=== PATIENT | male | born 1950 | race Caucasian/White ===

== ENCOUNTER 2021-08-17 19:23 | Inpatient (IN) | payer MEDICARE, MEDICAID ==
[~2021-08-17] VITALS: Ht 167.6 cm; Wt 73.1 kg
[2021-08-17 20:02] LABS: BASOPHILS % (AUTO) 0.1 % (0-1); EOSINOPHILS % (AUTO) 0.5 % (0-6); HEMATOCRIT 42.7 % (42.0-52.0); HEMOGLOBIN 14.2 g/dl (14.0-17.9); LYMPHOCYTES # (AUTO) 1.1 X10'3 (1.1-4.8); LYMPHOCYTES % (AUTO) 14.8 % (21-51); MEAN CORPUSCULAR HEMOGLOBIN 32.5 PG (27.0-31.0); MEAN CORPUSCULAR HGB CONC 33.2 g/dL (33.0-36.5); MEAN CORPUSCULAR VOLUME 97.9 FL (78-98); MEAN PLATELET VOLUME 8.6 FL (7.4-10.4); MONOCYTES # (AUTO) 0.8 X10'3 (0-0.9); MONOCYTES % (AUTO) 10.2 % (2-12); NEUTROPHILS # (AUTO) 5.6 X10'3 (1.8-7.7); NEUTROPHILS % (AUTO) 74.4 % (42-75); PLATELET COUNT 206 X10'3 (140-440); RED BLOOD COUNT 4.36 X10'6 (4.70-6.10); RED CELL DISTRIBUTION WIDTH 16.4 % (11.5-14.5); WHITE BLOOD COUNT 7.5 X10'3 (4.5-11.0)
[2021-08-17 20:12] LABS: ALANINE AMINOTRANSFERASE 66 U/L (12-78); ALBUMIN 2.8 G/DL (3.4-5.0); ALBUMIN/GLOBULIN RATIO 0.6 (1.1-1.5); ALKALINE PHOSPHATASE 77 IU/L (46-116); ANION GAP 12 (8-16); ASPARTATE AMINO TRANSFERASE 34 U/L (10-37); BILIRUBIN,TOTAL 1.1 MG/DL (0.1-1.0); BLOOD UREA NITROGEN 41 MG/DL (7-18); CALCIUM 8.4 MG/DL (8.5-10.1); CHLORIDE 100 MMOL/L (99-107); CREATININE 1.64 MG/DL (0.60-1.10); GLUCOSE 114 MG/DL (70-104); POTASSIUM 4.2 MMOL/L (3.5-5.1); SODIUM 135 MMOL/L (135-145); TOTAL CARBON DIOXIDE 23.4 MMOL/L (24-32); TOTAL PROTEIN 7.4 G/DL (6.4-8.2); eGFR 42 ML/MIN
[2021-08-17] MEDS ORDERED: furosemide 10 MG/1 ML 10ml inj IV ONE (21:05)
[2021-08-17] MEDS ORDERED: metoprolol tartrate 1mg/ml inj IV ONE (21:05)
[2021-08-17] MEDS ORDERED: METO25TA6 PO (22:08)
[2021-08-17] MEDS ORDERED: FOLI0.4T14 PO (22:08)
[2021-08-17] MEDS ORDERED: APIX5TAB3 PO (22:08)
[2021-08-17] MEDS ORDERED: LISI10TA27 PO (22:08)
--- NOTE | 2021-08-17 22:14 | NUR ---
HE STATES THAT HIS SOB HAS BEEN GOING ON FOR ABOUT A MONTH. PT REPORTS THAT HE WAS SEEN AT [facility] ON THE July FOR HIS SOB. HE STATES THAT HE WAS DISCHARGED AFTER HE WAS ABLE TO MAINTAIN HIS OXYGEN SATURATION WITHOUT OXYGEN SUPPLEMENTATION. HE WAS DIAGNOSED WITH AFIB AND CKD. TODAY HE FEELS "SO SHORT OF BREATH" THAT HE "FEELS LIKE PASSING OUT AFTER TAKING 10 STEPS".
--- NOTE | 2021-08-17 22:14 | NUR ---
PT ROOMED IN BED 15
[2021-08-18] MEDS ORDERED: acetaminophen 325mg tablet PO PRN (00:45)
[2021-08-18] MEDS ORDERED: magnesium Cl slow-release 64mg tablet PO PRN (00:45)
[2021-08-18] MEDS ORDERED: magnesium hydroxide 30ml (MOM) UD suspension PO PRN (00:45)
[2021-08-18] MEDS ORDERED: ondansetron/PF 4mg/2ml inj IV PRN (00:45)
[2021-08-18] MEDS ORDERED: mag hydrox/Alum hydrox/simeth 30ml oral suspension PO PRN (00:45)
[2021-08-18] MEDS ORDERED: potassium Cl 20 mEq SR tablet PO PRN (00:45)
[2021-08-18] MEDS ORDERED: magnesium 4gm in 100ml NS 100 ML IV PRN (00:45)
[2021-08-18] MEDS ORDERED: magnesium 2GM in 50ml NS 50 ML IV PRN (00:45)
[2021-08-18] MEDS ORDERED: PERFLUTREN PROTEIN-A MICROSPHR (Optison) 0.22 MG/ML 3ML VIAL IV PRN (00:45)
[2021-08-18] MEDS ORDERED: potassium CL 10mEq/100ml bag 100 ML IV PRN (00:45)
[2021-08-18 01:59] LABS: MAGNESIUM 2.3 MG/DL (1.5-2.4)
--- NOTE | 2021-08-18 06:21 | NUR ---
DR ALEJANDRO DOES NOT BELIEVE PT NEEDS A COVID SWAB. THEREFORE, THERE IS NO COVID SWAB ORDER WRITTEN.
[2021-08-18] MEDS: K and/or MAG REPLACEMENT MC SCH ×2 (07:32→20:19)
[2021-08-18] MEDS: docusate sod 100mg capsule PO SCH ×2 (07:32→20:18)
[2021-08-18] MEDS: furosemide 10 MG/1 ML 10ml inj IV SCH ×2 (07:32→20:17)
[2021-08-18] MEDS: carvedilol 6.25mg tablet PO SCH ×2 (07:33→20:17)
[2021-08-18] MEDS: lisinopril 2.5mg tablet PO SCH (07:33)
[2021-08-18] MEDS: enoxaparin 80mg/0.8ml syringe SUBCUT SCH ×2 (07:33→20:18)
[2021-08-18 10:05] LABS: BASOPHILS % (AUTO) 0.6 % (0-1); EOSINOPHILS # (AUTO) 0.1 X10'3 (0-0.9); HEMATOCRIT 42.5 % (42.0-52.0); HEMOGLOBIN 14.1 g/dl (14.0-17.9); LYMPHOCYTES # (AUTO) 1.3 X10'3 (1.1-4.8); LYMPHOCYTES % (AUTO) 18.7 % (21-51); MEAN CORPUSCULAR HEMOGLOBIN 32.1 PG (27.0-31.0); MEAN CORPUSCULAR HGB CONC 33.1 g/dL (33.0-36.5); MEAN PLATELET VOLUME 8.5 FL (7.4-10.4); MONOCYTES # (AUTO) 0.7 X10'3 (0-0.9); NEUTROPHILS # (AUTO) 4.9 X10'3 (1.8-7.7); NEUTROPHILS % (AUTO) 69.7 % (42-75); PLATELET COUNT 196 X10'3 (140-440); RED BLOOD COUNT 4.39 X10'6 (4.70-6.10); RED CELL DISTRIBUTION WIDTH 16.1 % (11.5-14.5)
[2021-08-18 10:25] LABS: ALANINE AMINOTRANSFERASE 56 U/L (12-78); ALBUMIN 2.7 G/DL (3.4-5.0); ALBUMIN/GLOBULIN RATIO 0.7 (1.1-1.5); ALKALINE PHOSPHATASE 67 IU/L (46-116); ANION GAP 10 (8-16); ASPARTATE AMINO TRANSFERASE 29 U/L (10-37); BILIRUBIN,TOTAL 1.4 MG/DL (0.1-1.0); BLOOD UREA NITROGEN 36 MG/DL (7-18); BUN/CREATININE RATIO 23.5 (5.4-32.0); CALCIUM 8.2 MG/DL (8.5-10.1); CHLORIDE 101 MMOL/L (99-107); CREATININE 1.53 MG/DL (0.60-1.10); GLUCOSE 107 MG/DL (70-104); POTASSIUM 3.4 MMOL/L (3.5-5.1); SODIUM 139 MMOL/L (135-145); TOTAL CARBON DIOXIDE 27.8 MMOL/L (24-32); TOTAL PROTEIN 6.8 G/DL (6.4-8.2); eGFR 45 ML/MIN
[2021-08-18 19:57] VITALS: BP 117/83
[2021-08-18] MEDS: potassium Cl 20 mEq SR tablet PO PRN ×2 (20:17→23:29)
[2021-08-18 22:00] VITALS: BP 114/79
[2021-08-19] VITALS (8 sets, daily range): BP systolic 97–117; BP diastolic 63–78
[2021-08-19 06:20] LABS: BASOPHILS % (AUTO) 0.4 % (0-1); EOSINOPHILS # (AUTO) 0.1 X10'3 (0-0.9); EOSINOPHILS % (AUTO) 1.3 % (0-6); HEMATOCRIT 43.1 % (42.0-52.0); HEMOGLOBIN 14.5 g/dl (14.0-17.9); LYMPHOCYTES # (AUTO) 1.4 X10'3 (1.1-4.8); LYMPHOCYTES % (AUTO) 16.6 % (21-51); MEAN CORPUSCULAR HEMOGLOBIN 32.5 PG (27.0-31.0); MEAN CORPUSCULAR HGB CONC 33.6 g/dL (33.0-36.5); MEAN CORPUSCULAR VOLUME 96.7 FL (78-98); MEAN PLATELET VOLUME 8.7 FL (7.4-10.4); MONOCYTES % (AUTO) 11.6 % (2-12); NEUTROPHILS # (AUTO) 5.9 X10'3 (1.8-7.7); NEUTROPHILS % (AUTO) 70.1 % (42-75); PLATELET COUNT 211 X10'3 (140-440); RED BLOOD COUNT 4.45 X10'6 (4.70-6.10); RED CELL DISTRIBUTION WIDTH 16.2 % (11.5-14.5); WHITE BLOOD COUNT 8.4 X10'3 (4.5-11.0)
[2021-08-19 06:56] LABS: ALANINE AMINOTRANSFERASE 45 U/L (12-78); ALBUMIN 2.5 G/DL (3.4-5.0); ALBUMIN/GLOBULIN RATIO 0.6 (1.1-1.5); ALKALINE PHOSPHATASE 70 IU/L (46-116); ANION GAP 12 (8-16); ASPARTATE AMINO TRANSFERASE 30 U/L (10-37); BILIRUBIN,TOTAL 0.7 MG/DL (0.1-1.0); BLOOD UREA NITROGEN 39 MG/DL (7-18); BUN/CREATININE RATIO 27.5 (5.4-32.0); CHLORIDE 100 MMOL/L (99-107); CREATININE 1.42 MG/DL (0.60-1.10); GLUCOSE 118 MG/DL (70-104); SODIUM 139 MMOL/L (135-145); TOTAL CARBON DIOXIDE 26.9 MMOL/L (24-32); eGFR 49 ML/MIN
[2021-08-19 07:01] LABS: POTASSIUM 4.1 MMOL/L (3.5-5.1)
[2021-08-19] MEDS: K and/or MAG REPLACEMENT MC SCH ×2 (07:04→19:42)
[2021-08-19] MEDS: lisinopril 2.5mg tablet PO SCH (07:44)
[2021-08-19] MEDS: enoxaparin 80mg/0.8ml syringe SUBCUT SCH ×2 (07:45→19:35)
[2021-08-19] MEDS: carvedilol 6.25mg tablet PO SCH (07:45)
[2021-08-19] MEDS: furosemide 10 MG/1 ML 10ml inj IV SCH (07:45)
[2021-08-19] MEDS: docusate sod 100mg capsule PO SCH ×2 (07:47→19:35)
--- NOTE | 2021-08-19 12:05 | NUR ---
Patient HR Dr. Lilly informed of patient HR fluctuating; Pt. asymptomatic during episodes; Per Dr. Lilly no new orders at this time. [facility]
--- NOTE | 2021-08-19 12:50 | NUR ---
O2 Sat at rest on room air:97_% If below 89%: Recovery O2 Sat at rest on ___LPM:___%:___% via (mask/nasal cannula, etc..) No further documentation is necessary. If O2 Sat did not drop below 89% on room air,ambulate patient on room air. O2 Sat while ambulating on room air:___% Recovery O2 Sat while ambulating on ___LPM:___% No further documentation is necessary. If patient does not drop below 89% while ambulating, he/she does not qualify for home O2. Addendum: 08/19/21 at 1252 by Galilea Beltrán RN saved without finishing documentation
--- NOTE | 2021-08-19 12:50 | NUR ---
O2 Sat at rest on room air:97 If O2 Sat did not drop below 89% on room air,ambulate patient on room air. O2 Sat while ambulating on room air :95% Recovery O2 Sat while ambulating on room air after ambulation 97% No further documentation is necessary. If patient does not drop below 89% while ambulating, he/she does not qualify for home O2. [facility]
--- NOTE | 2021-08-19 15:24 | NUR ---
Page to Dr. Lilly in regards to increase HR promotional table spacer PAGER ID: [phone] MESSAGE: Dr. Lilly pt in room 3027A Mike Thompson HR 150's sustaining; looks sinus tach, not atrial fib; BP 117/63 Galilea PCU Page received back to give IV metop; [facility]
[2021-08-19] MEDS ORDERED: metoprolol tartrate 1mg/ml inj IV ONE (15:25)
--- NOTE | 2021-08-19 16:23 | NUR ---
PAGER ID: [phone] MESSAGE: Dr. Lilly pt 2012L Mike Delgado HR back in [facility] in 70's latest BP 108/70. thank you, Galilea JAIMES
--- NOTE | 2021-08-19 18:25 | NUR ---
Per Dr. Lilly give Coreg now. Galilea U
[2021-08-19] MEDS: carVEDilol 12.5mg tablet PO SCH (18:28)
--- NOTE | 2021-08-19 18:44 | NUR ---
Problems reprioritized. Patient report given to Kari BREWSTER, questions answered & plan of care reviewed with Kari BREWSTER.
[2021-08-19] MEDS: furosemide 40mg/4ml inj IV SCH (19:35)
[2021-08-20] VITALS (15 sets, daily range): BP systolic 78–131; BP diastolic 51–98
[2021-08-20 06:12] LABS: BASOPHILS % (AUTO) 0.5 % (0-1); EOSINOPHILS # (AUTO) 0.2 X10'3 (0-0.9); EOSINOPHILS % (AUTO) 2.2 % (0-6); HEMOGLOBIN 15.3 g/dl (14.0-17.9); LYMPHOCYTES # (AUTO) 1.4 X10'3 (1.1-4.8); LYMPHOCYTES % (AUTO) 16.8 % (21-51); MEAN CORPUSCULAR HEMOGLOBIN 32.3 PG (27.0-31.0); MEAN CORPUSCULAR HGB CONC 33.3 g/dL (33.0-36.5); MEAN CORPUSCULAR VOLUME 97.2 FL (78-98); MEAN PLATELET VOLUME 8.9 FL (7.4-10.4); NEUTROPHILS # (AUTO) 5.7 X10'3 (1.8-7.7); NEUTROPHILS % (AUTO) 68.5 % (42-75); PLATELET COUNT 226 X10'3 (140-440); RED BLOOD COUNT 4.73 X10'6 (4.70-6.10); RED CELL DISTRIBUTION WIDTH 16.1 % (11.5-14.5); WHITE BLOOD COUNT 8.3 X10'3 (4.5-11.0)
--- NOTE | 2021-08-20 06:15 | NUR ---
Problems reprioritized. Patient report given, questions answered & plan of care reviewed with Galilea BREWSTER.
[2021-08-20 06:30] LABS: ALANINE AMINOTRANSFERASE 34 U/L (12-78); ALBUMIN 2.7 G/DL (3.4-5.0); ALBUMIN/GLOBULIN RATIO 0.6 (1.1-1.5); ALKALINE PHOSPHATASE 67 IU/L (46-116); ANION GAP 6 (8-16); ASPARTATE AMINO TRANSFERASE 21 U/L (10-37); BILIRUBIN,TOTAL 0.8 MG/DL (0.1-1.0); BLOOD UREA NITROGEN 41 MG/DL (7-18); BUN/CREATININE RATIO 29.1 (5.4-32.0); CALCIUM 8.4 MG/DL (8.5-10.1); CHLORIDE 98 MMOL/L (99-107); CREATININE 1.41 MG/DL (0.60-1.10); GLUCOSE 104 MG/DL (70-104); POTASSIUM 4.1 MMOL/L (3.5-5.1); SODIUM 135 MMOL/L (135-145); TOTAL CARBON DIOXIDE 30.9 MMOL/L (24-32); TOTAL PROTEIN 7.3 G/DL (6.4-8.2); eGFR 50 ML/MIN
[2021-08-20] MEDS: K and/or MAG REPLACEMENT MC SCH ×2 (08:00→20:00)
[2021-08-20] MEDS: docusate sod 100mg capsule PO SCH ×2 (08:47→19:43)
[2021-08-20] MEDS: furosemide 40mg/4ml inj IV SCH (08:47)
[2021-08-20] MEDS: carVEDilol 12.5mg tablet PO SCH ×2 (08:47→19:43)
[2021-08-20] MEDS: lisinopril 2.5mg tablet PO SCH (08:48)
[2021-08-20] MEDS: enoxaparin 80mg/0.8ml syringe SUBCUT SCH ×2 (08:49→19:43)
[2021-08-20] MEDS ORDERED: digoxin 250mcg/ml 2ml ampule IV ONE (10:20)
[2021-08-20] MEDS ORDERED: amiodarone/D5 360MG/200ML BAG 200 ML IV SCH (10:20)
[2021-08-20] MEDS ORDERED: amiodarone 150mg/dext, iso-os 100 ML IV ONE (10:20)
--- NOTE | 2021-08-20 11:39 | NUR ---
PAGER ID: [phone] MESSAGE: Dr. Lilly Pt. in room 3027A Mike Delgado in NSR 70's. Did you still want the amio and digoxin. Galilea [facility]
--- NOTE | 2021-08-20 13:05 | NUR ---
amio bolus and gtt Pt. still remains in NSR bolus and gtt held for now. Spoke with Perla DRUMMOND (cardiology) in regards to patient being in NSR on telemetry. Per Perla hold bolus and gtt will start on PO amio in place of bolus Galilea PCU
--- NOTE | 2021-08-20 14:02 | NUR ---
Pt. HR back elevated; Okay to give amio bolus and gtt.
--- NOTE | 2021-08-20 15:00 | NUR ---
spoke to Dr. Lilly in regards to patients blood pressure being 78/57 and HR- 91; Verbal order to hold amio gtt and d/c lasix order and get chest x-ray; Will continue to monitor.
--- NOTE | 2021-08-20 15:53 | NUR ---
spoke to Dr. Lilly in regards to patients blood pressure being 78/57 and HR- 91; Verbal order to hold amio gtt and d/c lasix order and get chest x-ray; Will continue to monitor. Addendum: 08/20/21 at 1603 by Galilea Beltrán RN entered at wrong time. [facility] Galilea
[2021-08-20] MEDS ORDERED: normal saline 500ml IV soln 500 ML IV ONE (16:45)
--- NOTE | 2021-08-20 17:59 | NUR ---
promotional table spacer PAGER ID: [phone] MESSAGE: Dr. Lilly. room 3022U Mike Delgado BP is 117/88 HR 71 after bolus. Thanks Galilea Katharine
--- NOTE | 2021-08-20 18:15 | NUR ---
Per Dr. Lilly restart amio gtt tonight; Report handed off to Cecilia RN and information to resume amio gtt passed along; Per Cecilia RN he will restart amio gtt at 1mg/hr. [facility]
--- NOTE | 2021-08-20 18:34 | NUR ---
Problems reprioritized. Patient report given Cecilia RN, questions answered & plan of care reviewed with Cecilia RN. [facility]
[2021-08-20] MEDS ORDERED: digoxin 250mcg/ml 2ml ampule IV SCH (20:00)
[2021-08-21 02:00] VITALS: BP 102/61
[2021-08-21 06:38] LABS: BASOPHILS # (AUTO) 0.1 X10'3 (0-0.2); BASOPHILS % (AUTO) 0.7 % (0-1); EOSINOPHILS # (AUTO) 0.2 X10'3 (0-0.9); HEMATOCRIT 47.7 % (42.0-52.0); HEMOGLOBIN 15.9 g/dl (14.0-17.9); LYMPHOCYTES # (AUTO) 1.7 X10'3 (1.1-4.8); LYMPHOCYTES % (AUTO) 21.1 % (21-51); MEAN CORPUSCULAR HEMOGLOBIN 32.4 PG (27.0-31.0); MEAN CORPUSCULAR HGB CONC 33.3 g/dL (33.0-36.5); MEAN CORPUSCULAR VOLUME 97.3 FL (78-98); MEAN PLATELET VOLUME 8.7 FL (7.4-10.4); MONOCYTES # (AUTO) 1.2 X10'3 (0-0.9); MONOCYTES % (AUTO) 14.7 % (2-12); NEUTROPHILS # (AUTO) 4.8 X10'3 (1.8-7.7); NEUTROPHILS % (AUTO) 60.5 % (42-75); PLATELET COUNT 229 X10'3 (140-440); RED CELL DISTRIBUTION WIDTH 16.2 % (11.5-14.5); WHITE BLOOD COUNT 7.9 X10'3 (4.5-11.0)
--- NOTE | 2021-08-21 06:42 | NUR ---
Patient in room PCU 3027. I have received report from Ni and had the opportunity to ask questions and assume patient care.
[2021-08-21 07:13] LABS: ALANINE AMINOTRANSFERASE 25 U/L (12-78); ALBUMIN 2.6 G/DL (3.4-5.0); ALBUMIN/GLOBULIN RATIO 0.6 (1.1-1.5); ANION GAP 6 (8-16); ASPARTATE AMINO TRANSFERASE 23 U/L (10-37); BILIRUBIN,TOTAL 0.5 MG/DL (0.1-1.0); BLOOD UREA NITROGEN 39 MG/DL (7-18); CALCIUM 8.3 MG/DL (8.5-10.1); CHLORIDE 100 MMOL/L (99-107); GLUCOSE 90 MG/DL (70-104); POTASSIUM 4.6 MMOL/L (3.5-5.1); SODIUM 136 MMOL/L (135-145); TOTAL CARBON DIOXIDE 30.2 MMOL/L (24-32); TOTAL PROTEIN 7.3 G/DL (6.4-8.2); eGFR 46 ML/MIN
--- NOTE | 2021-08-21 07:27 | NUR ---
PAGER ID: [phone] MESSAGE: Clarification please, Ward Monsivais [id number] please call Vik re; clarification of Digoxin and Amiodarone orders this AM. thank you correction page intended for Donna Monsivais
[2021-08-21 07:28] LABS: ALKALINE PHOSPHATASE 58 IU/L (46-116)
[2021-08-21 08:00] VITALS: BP 128/90
[2021-08-21] MEDS: K and/or MAG REPLACEMENT MC SCH ×2 (08:00→19:52)
[2021-08-21] MEDS: docusate sod 100mg capsule PO SCH ×2 (08:54→19:15)
[2021-08-21] MEDS: digoxin 125mcg (0.125mg) tablet PO SCH (08:55)
[2021-08-21] MEDS: enoxaparin 80mg/0.8ml syringe SUBCUT SCH ×2 (08:55→19:15)
[2021-08-21] MEDS ORDERED: metoprolol tartrate 1mg/ml inj IV PRN (10:05)
[2021-08-21] MEDS ORDERED: regadenoson 0.4mg/5ml syringe IV ONE (10:05)
[2021-08-21] MEDS ORDERED: aminophylline 250mg/10ml inj. IV PRN (10:05)
[2021-08-21] MEDS ORDERED: nitroGLYCERIN 0.4mg SUBLingual tab SL PRN (10:05)
[2021-08-21] MEDS: amiodarone 200mg tablet PO SCH (10:43)
[2021-08-21] MEDS: carVEDilol 12.5mg tablet PO SCH ×2 (10:45→19:15)
[2021-08-21] MEDS: lisinopril 2.5mg tablet PO SCH (10:46)
[2021-08-21 11:00] VITALS: BP 98/69
[2021-08-21] MEDS ORDERED: ondansetron 4mg rapidly disintigrating tab PO PRN (12:35)
[2021-08-21 15:00] VITALS: BP 101/60
[2021-08-21 18:00] VITALS: BP 119/66
--- NOTE | 2021-08-21 18:10 | NUR ---
Problems reprioritized. Patient report given, questions answered & plan of care reviewed with Ni.
[2021-08-21 22:00] VITALS: BP 106/66
[2021-08-22] VITALS (10 sets, daily range): BP systolic 94–137; BP diastolic 51–81
[2021-08-22 06:39] LABS: BASOPHILS # (AUTO) 0.1 X10'3 (0-0.2); EOSINOPHILS # (AUTO) 0.3 X10'3 (0-0.9); EOSINOPHILS % (AUTO) 3.5 % (0-6); LYMPHOCYTES # (AUTO) 1.5 X10'3 (1.1-4.8); MEAN CORPUSCULAR HGB CONC 34.2 g/dL (33.0-36.5); MEAN CORPUSCULAR VOLUME 96.6 FL (78-98); MEAN PLATELET VOLUME 8.5 FL (7.4-10.4); MONOCYTES % (AUTO) 13.4 % (2-12); NEUTROPHILS # (AUTO) 4.4 X10'3 (1.8-7.7); NEUTROPHILS % (AUTO) 61.1 % (42-75); PLATELET COUNT 217 X10'3 (140-440); RED BLOOD COUNT 4.55 X10'6 (4.70-6.10); RED CELL DISTRIBUTION WIDTH 16.5 % (11.5-14.5); WHITE BLOOD COUNT 7.2 X10'3 (4.5-11.0)
[2021-08-22 06:52] LABS: ALANINE AMINOTRANSFERASE 29 U/L (12-78); ALBUMIN 2.6 G/DL (3.4-5.0); ALBUMIN/GLOBULIN RATIO 0.6 (1.1-1.5); ALKALINE PHOSPHATASE 57 IU/L (46-116); ANION GAP 7 (8-16); ASPARTATE AMINO TRANSFERASE 25 U/L (10-37); BILIRUBIN,TOTAL 0.7 MG/DL (0.1-1.0); BLOOD UREA NITROGEN 34 MG/DL (7-18); CALCIUM 8.3 MG/DL (8.5-10.1); CHLORIDE 103 MMOL/L (99-107); CREATININE 1.26 MG/DL (0.60-1.10); GLUCOSE 91 MG/DL (70-104); POTASSIUM 4.3 MMOL/L (3.5-5.1); SODIUM 136 MMOL/L (135-145); TOTAL CARBON DIOXIDE 26.5 MMOL/L (24-32); TOTAL PROTEIN 7.2 G/DL (6.4-8.2); eGFR 57 ML/MIN
[2021-08-22] MEDS: amiodarone 200mg tablet PO SCH (06:58)
[2021-08-22] MEDS: digoxin 125mcg (0.125mg) tablet PO SCH (06:59)
[2021-08-22] MEDS: lisinopril 2.5mg tablet PO SCH (07:00)
[2021-08-22] MEDS: carVEDilol 12.5mg tablet PO SCH (07:00)
[2021-08-22] MEDS: K and/or MAG REPLACEMENT MC SCH (07:01)
[2021-08-22] MEDS: enoxaparin 80mg/0.8ml syringe SUBCUT SCH (07:01)
[2021-08-22] MEDS: docusate sod 100mg capsule PO SCH (07:02)
--- NOTE | 2021-08-22 12:52 | NUR ---
Initial: Pt admit for increasing SOB from CHF. Pt currently on a heart healthy diet with a 2 L fluid restriction and eating well with 100% PO intake throughout LOS. Pt NPO this morning per EMR. LBM 08/21, with routine bowel care available though pt refuses at times. No nutrition intervention implemented at this time. Will continue to follow. Recommendations: 1) Continue heart healthy diet with 2 L fluid restriction per MD 2) Routine bowel care 3) Daily scaled weights per rx Addendum: 08/22/21 at [address] Amended: Links added.
[2021-08-22] MEDS ORDERED: CARV-50 PO (14:00)
[2021-08-22] MEDS ORDERED: LISI2.5T14 PO (14:00)
[2021-08-22] MEDS ORDERED: APIX5TAB3 PO (14:00)
[2021-08-22] MEDS ORDERED: AMIO200T67 PO (14:00)
[2021-08-22] MEDS ORDERED: FURO-150 PO (14:17)
[2021-08-22] MEDS ORDERED: ASPI81TA30 PO (14:20)
--- NOTE | 2021-08-22 16:10 | NUR ---
Pt. received discharge instructions with no further questions; Pt IV removed with catheter intact; tele box cleaned and returned; [facility] cab ordered to take patient to [facility] in [place] and also to patients house; Per Dr. Lilly patient stable for discharge; [facility]
== END 2021-08-22 16:07 | disposition home or self-care (01) | DRG 291 ==
LOC: ER 19:23 → ED HOLD 08-18 00:48 → PCU 3S 08-18 19:30
PROVIDERS: ADMIT Internal Medicine; ATTEND Family Medicine
PROC: 4A02XM4 Measurement of Cardiac Total Activity, External Approach (ICD-10-PCS; principal; 2021-08-22)
PROC: 3E073KZ Introduction of Other Diagnostic Substance into Coronary Artery, Percutaneous Approach (ICD-10-PCS; 2021-08-22)
DX: I13.0 Hypertensive heart and chronic kidney disease with heart failure and stage 1 through stage 4 chronic kidney disease, or unspecified chronic kidney disease (principal); I50.43 Acute on chronic combined systolic (congestive) and diastolic (congestive) heart failure; N17.0 Acute kidney failure with tubular necrosis; I48.92 Unspecified atrial flutter; I42.9 Cardiomyopathy, unspecified; I48.0 Paroxysmal atrial fibrillation; J44.9 Chronic obstructive pulmonary disease, unspecified; E78.5 Hyperlipidemia, unspecified; I25.10 Atherosclerotic heart disease of native coronary artery without angina pectoris; N18.9 Chronic kidney disease, unspecified; Z60.2 Problems related to living alone; I08.0 Rheumatic disorders of both mitral and aortic valves; E87.6 Hypokalemia; I95.2 Hypotension due to drugs; T46.2X5A Adverse effect of other antidysrhythmic drugs, initial encounter; Z79.01 Long term (current) use of anticoagulants; Z79.899 Other long term (current) drug therapy; Z87.891 Personal history of nicotine dependence; Z95.5 Presence of coronary angioplasty implant and graft; Z82.49 Family history of ischemic heart disease and other diseases of the circulatory system; Z80.8 Family history of malignant neoplasm of other organs or systems; Y92.89 Other specified places as the place of occurrence of the external cause; Z86.73 Personal history of transient ischemic attack (TIA), and cerebral infarction without residual deficits
CPT/HCPCS: 36415; 71045; 78452; 80053; 80162; 83735; 83880; 84132; 84443; 84484; 85025; 87081; 93005; 93017; 99285; A9500; G0378; J0282; J1160; J1650; J1940; J2785; J3490; J7040